=== PATIENT | male | born 1990 | race Caucasian/White ===

== ENCOUNTER 2016-09-29 18:38 | Emergency (ER) | payer OTHER ==
[2016-09-29 18:55] VITALS: BP 152/87
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
--- NOTE | 2016-09-29 20:08 | CT ---
CT cervical spine Technique: Multiple axial sections were obtained from above C1 inferiorly to the top of T4. Reconstructed sagittal and coronal images were reviewed. Comparison: No previous cervical spine imaging. Findings: Old avulsion fracture is identified off the tip of the spinous process of T1. This appears ununited and shows mildly sclerotic margins. Vertebral body heights and disc spaces are maintained. Fracture is identified within the transverse process of T1. This is noted on the right side and shows minimal displacement. This appears to be acute. Fracture also felt to be present within the transverse process of T7 on the right side with no displacement. No additional cervical spine fracture is seen. Visualized mastoid and middle ear cavities are clear. Posterior skull base is intact. No bony central or bony neural foraminal stenosis. No abnormal subluxation is seen. Uncovertebral joints appear within normal limits. Impression: 1. Acute transverse process fractures within C7 and T1 on the right side. These are stable fractures. 2. Old spinous process fracture of T1. 3. Other portions of the CT study of the cervical spine are unremarkable. Diagnostic code #3
== END 2016-09-29 20:45 | disposition home or self-care (01) ==
LOC: JD.ED 18:38
DX: S12.601A Unspecified nondisplaced fracture of seventh cervical vertebra, initial encounter for closed fracture (principal); S22.019A Unspecified fracture of first thoracic vertebra, initial encounter for closed fracture; Z88.5 Allergy status to narcotic agent; V86.59XA Driver of other special all-terrain or other off-road motor vehicle injured in nontraffic accident, initial encounter
CPT/HCPCS: 72125; 72125-26; 99284; 99284-25

== ENCOUNTER 2023-02-06 22:25 | Emergency (ER) | payer OTHER ==
[2023-02-06] MEDS ORDERED: Sodium Chloride 0.9% 10 ML Syringe FLUSH PRN (22:55)
[2023-02-06] MEDS ORDERED: Ketorolac 30 MG/ML SDV IVPUSH ONE (23:00)
[2023-02-06 23:46] LABS: A/G RATIO 1.2 (1-2); ANION GAP 11.4 (5-15); BILIRUBIN TOTAL 0.3 mg/dL (0.2-1.0); BUN/CREATININE RATIO 21.5 (14-18); CALCIUM 8.8 mg/dL (8.5-10.1); CREATININE 1.3 mg/dL (0.7-1.3); EST CRCL DRUG DOSING (CG) 74.3 mL/min; MAGNESIUM 2.2 mg/dL (1.8-2.4); POTASSIUM,K 4.4 mEq/L (3.5-5.1); PROTEIN TOTAL,TP 7.3 g/dl (6.4-8.2)
[2023-02-06] MEDS ORDERED: Ketorolac 30 MG/ML SDV IM ONE (23:46)
[2023-02-07 00:03] LABS: APPEARANCE,URINE CLEAR (Clear); BILIRUBIN,URINE NEGATIVE (Negative); COLOR,URINE LIGHT YELLOW (Yellow); GLUCOSE,URINE NEGATIVE (Negative); KETONES,URINE NEGATIVE (Negative); LEUKOCYTE ESTERASE,URINE NEGATIVE (Negative); NITRITE,URINE NEGATIVE (Negative); OCCULT BLOOD,URINE NEGATIVE (Negative); PH,URINE 6.5 (5.0-8.0); PROTEIN,URINE NEGATIVE (Negative); UROBILINOGEN,URINE 0.2 (0.2-1.0)
[2023-02-07 00:12] LABS: BARBITURATE SCREEN,URINE NEGATIVE (CUTOFF=200); BENZODIAZEPINES SCREEN,URINE NEGATIVE (CUTOFF=150); BUPRENORPHINE SCREEN,URINE NEGATIVE (CUTOFF=10); METHADONE SCREEN, URINE NEGATIVE (CUT0FF=200); METHAMPHETAMINES SCREEN, URINE NEGATIVE (CUTOFF=500); OXYCODONE SCREEN,URINE NEGATIVE (CUT0FF=100); THC SCREEN,URINE 20 NG/ML NEGATIVE (CUTOFF=50)
[2023-02-07 00:15] LABS: AMPHETAMINES SCREEN, URINE NEGATIVE (CUTOFF=500)
[2023-02-07 00:36] LABS: BACTERIA,URINE RARE /hpf (FEW); EPITHELIAL CELLS,URINE NOT SEEN /hpf (0-5); MUCUS,URINE NOT SEEN /hpf (FEW); RBC,URINE 0-5 /hpf (0-5); WBC,URINE 0-5 /hpf (0-5)
[2023-02-07 02:39] VITALS: BP 128/81; PULSE 85
== END 2023-02-07 00:20 | disposition home or self-care (01) ==
LOC: JD.ED 22:25
DX: S13.4XXA Sprain of ligaments of cervical spine, initial encounter (principal); Z88.5 Allergy status to narcotic agent; V60.5XXA Driver of heavy transport vehicle injured in collision with pedestrian or animal in traffic accident, initial encounter; Y92.410 Unspecified street and highway as the place of occurrence of the external cause
CPT/HCPCS: 36415; 70450; 71046; 72125; 80053; 80306; 80307; 81001; 83735; 96372; 99284; J1885